=== PATIENT | male | born 1965 | race African-American/Black ===

== ENCOUNTER 2016-09-28 06:36 | Emergency (ER) | payer OTHER ==
[~2016-09-28] VITALS: Ht 175.3 cm; Wt 104.5 kg
[2016-09-28 07:14] VITALS: BP 114/76
== END 2016-09-28 09:08 | disposition home or self-care (01) ==
LOC: EMS 06:38
DX: S76.912A Strain of unspecified muscles, fascia and tendons at thigh level, left thigh, initial encounter (principal); M79.605 Pain in left leg; M79.652 Pain in left thigh; W23.0XXA Caught, crushed, jammed, or pinched between moving objects, initial encounter; Y93.89 Activity, other specified; Y92.9 Unspecified place or not applicable; Y99.9 Unspecified external cause status
CPT/HCPCS: 99283